=== PATIENT | female | born 1950 ===

== ENCOUNTER 2022-08-22 14:31 | Inpatient (IN) | payer OTHER ==
[~2022-08-22] VITALS: Ht 144.8 cm; Wt 43.1 kg
[2022-08-23] MEDS ORDERED: LEVOTHYROXINE25 MCG PO (09:21)
[2022-08-23] MEDS ORDERED: LIPITOR40 M1 PO (09:22)
[2022-08-23] MEDS ORDERED: COZAAR100 MG PO (09:23)
[2022-08-23] MEDS ORDERED: AMLODI PO (09:24)
[2022-08-23] MEDS ORDERED: BONIVA150 MG PO (09:25)
[2022-08-28] MEDS ORDERED: AMLODIPINE BESYL5 MG (11:25)
[2022-08-28] MEDS ORDERED: HYDROCHLOROTHIA50 MG (11:25)
[2022-08-31] MEDS ORDERED: NEURONTIN300 MG PO (15:00)
[2022-08-31] MEDS ORDERED: TRAM1TAB98 PO (15:00)
== END 2022-08-31 17:35 | disposition home or self-care (01) | DRG 331 ==
LOC: SURH 08-28 07:45 → O/R 08-28 08:06 → SURG 08-28 08:06 → SURH 08-28 10:00 → SURG 08-28 15:02
PROVIDERS: ADMIT Surgery; ATTEND Surgery
PROC: 0DBP4ZZ Excision of Rectum, Percutaneous Endoscopic Approach (ICD-10-PCS; 2022-08-28)
PROC: 0DBE4ZZ Excision of Large Intestine, Percutaneous Endoscopic Approach (ICD-10-PCS; 2022-08-28)
PROC: 0DJD8ZZ Inspection of Lower Intestinal Tract, Via Natural or Artificial Opening Endoscopic (ICD-10-PCS; 2022-08-28)
PROC: 3E0F7SF Introduction of Other Gas into Respiratory Tract, Via Natural or Artificial Opening (ICD-10-PCS; 2022-08-28)
PROC: 0DTN4ZZ Resection of Sigmoid Colon, Percutaneous Endoscopic Approach (ICD-10-PCS; principal; 2022-08-28 10:00)
DX: K57.20 Diverticulitis of large intestine with perforation and abscess without bleeding (principal); R10.32 Left lower quadrant pain; Z43.3 Encounter for attention to colostomy